=== PATIENT | female | born 1990 | race Caucasian/White ===

== ENCOUNTER 2021-04-06 12:38 | Observation (INO) | payer BC, SELFPAY ==
[2021-04-06 12:44] VITALS: BP 134/78; PULSE 71; RESP 16; TEMP 37.3; O2SAT 100
--- NOTE | 2021-04-06 13:09 | ED.GENADUL_ITS ---
Discharge Plan Disposition Patient Disposition: [facility] Condition: Stable Discharge Details Chief Complaint: AUTOMOTIVE SERVICE ASSISTANT Clinical Impression: Miscarriage, threatened, early Primary Care Provider: Brittney Alcala ED Provider: Gonzalez Ovalle Home Meds and New Rx's Prescriptions: No Action fluticasone propionate [Flonase Allergy Relief] 50 mcg/actuation spray,suspension 1 spray intranasal Q12H RF: 0 Formula 1 EACH tablet 1 ea PO DAILY Qty: 100 RF: 0 Medical Decision Making 30-year-old female at approximately 7 to 8 weeks gestation by last menstrual period. Reports onset yesterday of lower abdominal cramps consistent with previous menstrual cramps and vaginal flow of clots and blood up to 1-2 pads per hour. No vomiting, no recent illness, she is fully immunized against COVID-19. She recently had debris initiated care with obstetrics. She reports that she did have previous miscarriage and has single healthy child at home. Patient's vital signs are reassuring. Screening laboratories obtained and transvaginal ultrasound ordered but no windows server support technician available to perform the study today, Wednesday. Labs reveal unremarkable CBC and chemistries. Beta hCG is 5706. Patient Rh+. Case discussed case discussed with Dr. Moy. She is to consent the patient for D&C and patient to go to the OR. HPI General Mode of arrival: ambulatory . Date/Time Provider Initiated Documentation: 04/06/21 12:39 . Limitations to Documentation: no limitations . Information obtained by: patient . History of Present Illness 30 year old F presents to the emergency department with the chief complaint of Vaginal bleeding, first trimester , described as mild and moderate, and is localized to the abdomen and pelvis. and it has been intermittent. No relieving factors improve symptom(s), No exacerbating factors reported . Patient notes denies fever/chills and nausea/vomiting. Patient did receive the following treatments prior to arrival, none Related Data Home Medications Medication Instructions Recorded Confirmed prenat.vits,jake,goi-ogou-hkstw 1 ea PO DAILY #100 tab 09/14/14 04/06/21 [ Vitamins] fluticasone propionate 50 1 spray INTRANASAL Q12H 03/31/21 04/06/21 mcg/actuation nasal spray,suspension Allergies Allergy/AdvReac Type Severity Reaction Status Date / Time No Known Allergies Allergy Unverified 04/06/21 12:50 General Stated Complaint: AUTOMOTIVE SERVICE ASSISTANT EMILY: 2 Review of Systems Narrative: No vomiting. No fall or abdominal injury. Fully immunized against COVID-19. Using approximately 1-2 pads per hour. [facility] Family History Father Throat cancer Thyroid disorder Paternal Grandmother No problems noted. Social History Smoking/Tobacco Use Status: Never Smoking risk assessment performed?: Yes Alcohol Intake: never Drug use: Never Substance use type: does not use Exam Narrative Exam Narrative: GEN: awake, alert, oriented 3. Pleasant, well groomed, interactive. HEAD: Normocephalic, atraumatic ENT: Mucous membranes moist, oropharynx unremarkable, External ear exam unremarkable EYES: PERRL, EOMI NECK: Full ROM, no JAHAIRA, no menigismus CHEST/RESP: Nontender, clear to auscultation bilateral, no wheeze/rhonchi/rales CARDIOVASCULAR: RRR, no murmur, rub brenda. 2+ Rad pulse bilateral ABDOMEN: Soft, nontender, no mass. +Bowel sounds Vaginal exam unremarkable exterior/labia majora. On speculum exam the os is fingertip with dark blood in the dependent vaginal vault. EXT: Full ROM, no edema, no rash Neuro: Grossly normal neurologic exam, conversant, interactive. Psych: Speech fluent, thoughts congruent, affect normal Course Vital Signs Vital signs: Vital Signs Temperature 37.3 C 04/06/21 12:44 Pulse 71 04/06/21 12:44 Respiratory Rate 16 04/06/21 12:44 Blood Pressure 134/78 04/06/21 12:44 Pulse Oximetry 100 04/06/21 12:44 Temperature 37.3 C 04/06/21 12:44 Temperature Source Skin 04/06/21 12:44 Pulse 71 04/06/21 12:44 Respiratory Rate 16 04/06/21 12:44 Respiratory Effort Non-Labored 04/06/21 12:44 Blood Pressure 134/78 04/06/21 12:44 Blood Pressure Position Sitting 04/06/21 12:44 Pulse Oximetry 100 04/06/21 12:44 Oxygen Delivery Method Room Air 04/06/21 12:44 Oxygen Flow Rate 0 04/06/21 12:44 Pain Level 2 04/06/21 12:51
[2021-04-06 13:29] LABS: HCT 39.9 % (36.0-46.0); HGB 12.8 g/dL (11.2-15.7); MCH 27.6 pg (27.0-33.0); MCHC 32.1 % (32.0-36.0); MPV 9.9 fL (8.0-11.0); Platelet Count 359 10^3/uL (130-400); RBC 4.64 10^6/uL (3.93-5.22); RDW-SD 40.6 fL; WBC 10.59 10^3/uL (4.4-10.8)
[2021-04-06 14:04] LABS: Anion Gap 10.3 mmol/L (3-11); BUN 12 mg/dL (7-18); CO2 26.7 mmol/L (21.0-32.0); CREATININE 0.8 mg/dL (0.55-1.02); Calcium 9.2 mg/dL (8.5-10.1); Chloride 103 mmol/L (98-107); Glucose 88 mg/dL (74-106); HCG Quant, Pregnancy 5706 mIU/mL (1-3); Potassium 3.9 mmol/L (3.5-5.1); Sodium 140 mmol/L (136-145)
[2021-04-06] MEDS: DOXYCYCLINE 100 MG in Normal Saline 100 ML IVPB (15:45)
[2021-04-06 15:51] LABS: Source Nasal/Nares
--- NOTE | 2021-04-06 15:56 | HPE_ITS ---
Date of service: 04/06/21 Time of Service: 15:56 Assessment and Plan Assessment and plan (1) Incomplete : Status: Acute Assessment and plan: Informed consent was obtained. Patient was counseled regarding the risk of puncture of uterus with subsequent bleeding and need for possible laparotomy;the risk of infection and injury to surrounding structures including bowel, bladder, and blood vessels. Her questions were answered. She will receive 100mg Doxycycline IV prior to the procedure. History of Present Illness History of Present Illness Chief Complaint: incomplete 1st trimester SAB Narrative: Pt is a 30yo female with bleeding and pelvic cramping x 36hrs. Bleeding like a menses with passage of clots. + UPT confirmed 03/31/21 in [facility]. On presentation to ED nl CBC, hCG 5706 mIU/ml. Stable VS. Unremarkable abd and bimanual exam. Pt had Nexplanon removed 12/18/20. Her LNMP started 12/24/20. She had 3 days of lite bleeding start 02/14/21. Did not feel until mid Feb. Stopped feeling 3 days ago. Review of Systems Constitutional Constitutional: Reports system reviewed and no additional complaints, except as documented Genitourinary Genitourinary: Reports amenorrhea (+ UPT 03/31/21. Began menses like bleeding 72hrs ago.) and Reports pelvic pain Musculoskeletal Musculoskeletal: Reports system reviewed and no additional complaints, except as documented Integumentary/Breasts Skin/Breast: Reports breast pain (initial indicator that she was ) Psychiatric Psychiatric: Reports as per HPI (sad about loss of .) PFSH Family History Father Throat cancer Thyroid disorder Paternal Grandmother No problems noted. Social History (Updated 04/06/21 @ 16:05 by Cleopatra Moy MD) Smoking/Tobacco Use Status: Never Smoking risk assessment performed?: Yes Alcohol Intake: never Drug use: Never Substance use type: does not use Household members: spouse, children and other Details: [place] Housing: house Number of Children: 1 Education Level: college current occupation: mental and behavioral health specialist [facility] [employer] [facility] Meds Allergies and Home Medications Allergies Allergy/AdvReac Type Severity Reaction Status Date / Time No Known Allergies Allergy Unverified 04/06/21 12:50 Home Medications Medication Instructions Recorded Confirmed Type prenat.vits,jake,vij-ilbk-rfuba 1 ea PO DAILY #100 tab 09/14/14 04/06/21 History [ Vitamins] fluticasone propionate 50 1 spray INTRANASAL Q12H 03/31/21 04/06/21 History mcg/actuation nasal spray,suspension Exam Const General: no acute distress Nutritional Appearance: obese Orientation: alert, awake and oriented x3 Resp Effort & Inspection: normal respiratory effort Auscultation: clear to auscultation bilaterally Cardio Rate: regular rate Rhythm: regular rhythm GI Inspection: normal to inspection Palpation: soft, no hepatosplenomegaly, no masses and nontender General: deferred (had previously been performed by ED provider) Skin General skin exam: no rashes or lesions noted Extrem General: normal to inspection Psych Appearance: grossly normal Mental Status: mental status grossly normal Speech and Movement: speech and movement normal Mood: congruent mood Affect: sad Attitude: cooperative Thought Process: normal Thought Content: normal Insight: insight good Judgment: judgment good Results Labs Result diagrams: 04/06/21 13:19 04/06/21 13:19 Labs: Laboratory Results - last 24 hr 04/06/21 04/06/21 04/06/21 13:19 13:19 13:19 WBC 10.59 RBC 4.64 Hgb 12.8 Hct 39.9 MCV 86.0 MCH 27.6 MCHC 32.1 RDW 13.0 Plt Count 359 MPV 9.9 Sodium 140 Potassium 3.9 Chloride 103 Carbon Dioxide 26.7 Anion Gap 10.3 BUN 12 Creatinine 0.8 Estimated GFR/1.73 m2 >= 60.00 Glucose 88 Calcium 9.2 Beta HCG, Quant 5706 H COVID-19 Source Patient ABO/Rh A Positive Antibody Screen NEGATIVE 04/06/21 15:46 WBC RBC Hgb Hct MCV MCH MCHC RDW Plt Count MPV Sodium Potassium Chloride Carbon Dioxide Anion Gap BUN Creatinine Estimated GFR/1.73 m2 Glucose Calcium Beta HCG, Quant COVID-19 Source Nasal/Nares Patient ABO/Rh Antibody Screen Last Vital Signs Temp 99.1 F 04/06/21 12:44 Pulse 71 04/06/21 12:44 Resp 16 04/06/21 12:44 BP 134/78 04/06/21 12:44 Pulse Ox 100 04/06/21 12:44
--- NOTE | 2021-04-06 16:17 | W.ANESPRE ---
General Info Date of Service Date Performed: 04/06/21 Height: 5 ft 7 in Weight: 113.398 kg Body Mass Index (BMI): 39.1 Surgical Procedure: Operation Date: 04/06/21 16:15 Proposed Procedures Side Surgeon p Dilation & Curettage Cleopatra Moy MD Meds Allergies and Home Medications Allergies Allergy/AdvReac Type Severity Reaction Status Date / Time No Known Allergies Allergy Unverified 04/06/21 12:50 Home Medication Medication Instructions Recorded prenat.vits,jake,ojc-ahar-hneyy 1 ea PO DAILY #100 tab 09/14/14 [ Vitamins] fluticasone propionate 50 1 spray INTRANASAL Q12H 03/31/21 mcg/actuation nasal spray,suspension Current Visit Medications: Current Medications Generic Name Dose Route Start Last Admin Trade Name Freq PRN Reason Stop Dose Admin Doxycycline Hyclate 100 mg/ 100 mls @ 100 mls/hr 04/06/21 15:32 04/06/21 15:45 Sodium Chloride IVPB 04/06/21 16:31 100 mls/hr NOW ONE Administration IV Miscellaneous Supplies 1 each 04/06/21 13:00 Iv Access IV DIRECTED MICHAEL Sodium Chloride 0 ml 04/06/21 12:51 Normal Saline Flush 10 Ml Syr IVP PRN PRN PFSH Active Problems Active Problems: Problem Status Onset Code Incomplete O03.4 Miscarriage, threatened, early O20.0 Positive test Z32.01 Tobacco Smoking/Tobacco Use Status: Never Alcohol Alcohol Intake: never Substance Use Substance use: Never Substance use type: does not use Vital Signs and Lab Results Vital Signs Most Recent Vital Signs in EMR: Most Recent Vital Signs Temp Pulse Resp BP Pulse Ox 37.3 C 71 16 134/78 100 04/06/21 12:44 04/06/21 12:44 04/06/21 12:44 04/06/21 12:44 04/06/21 12:44 Lab Results Result Diagrams: 04/06/21 13:19 04/06/21 13:19 Blood Type / Crossmatch: Patient ABO/Rh A Positive 04/06/21 13:19 04/06/21 Antibody Screen NEGATIVE 04/06/21 13:19 04/06/21 Complete Blood Count: White Blood Count 10.59 10^3/uL (4.4-10.8) 04/06/21 13:19 04/06/21 Red Blood Count 4.64 10^6/uL (3.93-5.22) 04/06/21 13:19 04/06/21 Hemoglobin 12.8 g/dL (11.2-15.7) 04/06/21 13:19 04/06/21 Hematocrit 39.9 % (36.0-46.0) 04/06/21 13:19 04/06/21 Platelet Count 359 10^3/uL (130-400) 04/06/21 13:19 04/06/21 Complete Metabolic Panel: Sodium Level 140 mmol/L (136-145) 04/06/21 13:19 04/06/21 Potassium Level 3.9 mmol/L (3.5-5.1) 04/06/21 13:19 04/06/21 Chloride Level 103 mmol/L (98-107) 04/06/21 13:19 04/06/21 Carbon Dioxide Level 26.7 mmol/L (21.0-32.0) 04/06/21 13:19 04/06/21 Blood Urea Nitrogen 12 mg/dL (7-18) 04/06/21 13:19 04/06/21 Creatinine 0.8 mg/dL (0.55-1.02) 04/06/21 13:19 04/06/21 Estimated GFR/1.73 m2 >= 60.00 (mL/min/1.73m2) 04/06/21 13:19 04/06/21 Calcium Level 9.2 mg/dL (8.5-10.1) 04/06/21 13:19 04/06/21 Glucose Level 88 mg/dL (74-106) 04/06/21 13:19 04/06/21 Liver Function Panel: No Data to Display Coagulation Panel: No Data to Display Cardiac Panel: No Data to Display Arterial Blood Gas: No Data to Display Venous Blood Gas: No Data to Display Pancreas Panel: No Data to Display Thyroid Panel: No Data to Display Infectious Disease: Coronavirus (COVID-19)(PCR) Pending 04/06/21 15:46 04/06/21 Coronavirus 2019 Source Nasal/Nares 04/06/21 15:46 04/06/21 Blood Cultures: No Data to Display Toxicology Panel: No Data to Display Panel: Urine HCG, Qualitative Positive 03/31/21 08:49 03/31/21 Beta HCG, Quantitative 5706 mIU/mL (1-3) H 04/06/21 13:19 04/06/21 Anesthesia Assessment and Plan Anesthesia History Personal History: No History of Anesthesia Complications Family History: No Family History of Anesthesia Complications Exercise Tolerance Exercise Tolerance: Metabolic Equivalents>4 Pertinent Negatives Pertinent Negatives: No Symptoms of GERD, No Major Cardiovascular Symptoms or Complaints, No Major Pulmonary Symptoms or Complaints (Nasal spray for allergies) and No History of CVA/TIA Cardiac & Pulmonary Exam Cardiac Exam: Normal S1/S2 Heart Sounds Pulmonary Exam: Clear Bilateral Breath Sounds Airway Exam Known Difficult Airway: No Mallampati Class: 2 Mouth Opening: Normal (> 3cm) Thyromental Distance: Greater than 3 cm Neck Range of Motion: Full ROM Neck Circumference: Normal Teeth Condition: Normal Dentition ASA Classification ASA Score: ASA 3 Emergency Case?: No NPO Status NPO Status: NPO Clears >2 hours, Solids >8 hours Status Status: Not Per Patient (Incomplete ) Anesthesia Plan Resuscitation Status: Full Code Anesthesia Technique: General Anesthesia Airway Planned: Natural Airway Monitors Used: Standard Monitors
--- NOTE | 2021-04-06 16:47 | W.PM.DSUDISC ---
Discharge Plan Disposition Condition: Stable Discharge Details Admit Date/Time: 04/06/21 17:40 Admit Provider: Cleopatra Moy Attending Provider: Cleopatra Moy Primary Care Provider: Brittney Alcala Home Meds and New Rx's Prescriptions: No Action fluticasone propionate [Flonase Allergy Relief] 50 mcg/actuation spray,suspension 1 spray intranasal Q12H RF: 0 Formula 1 EACH tablet 1 ea PO DAILY Qty: 100 RF: 0 Discharge Instructions Additional Instructions: Rest tonight and tomorrow. you may return to work on 04/08/2021. You may expect vaginal bleeding like a mild period the next 3 days. [facility] at [phone] on 04/07/2021 to schedule a 2-week postop appointment with Dr. Moy. You may take afro-gse-rvecpsf ibuprofen 600 mg every 6 hours for pain. Acetaminophen 325 mg every 4 hours for pain. Stand Alone Forms: DSU Post Gynecology Surgery Activity:: Activity as Tolerated Shower/Bathe:: 24 hours Diet:: As Tolerated DS: Diagnosis Discharge Diagnosis (1) Incomplete : Status: Acute (2) Hx of dilation and curettage: Status: Acute
[2021-04-06 16:56] VITALS: BMI 39.1
[2021-04-06 16:56] LABS: COVID-19 PCR Negative (Negative)
[2021-04-06] MEDS: Lactated Ringers 1,000 ML 125 ML IV (17:05)
[2021-04-06] MEDS: Bupivacaine 0.25% Pres-Free 30 ML VIAL (17:21)
[2021-04-06] MEDS: Silver Nitrate Stick 1 EACH (17:30)
--- NOTE | 2021-04-06 17:30 | POC_PTH ---
PATIENT: Joseluis Lainez LOC: OBS U#:[id number] AGE/SX: 30/F ROOM: OBS.307 RE04/06/[address]: Cleopatra Moy : 1990 BED: A DIS: 04/07/2021 SPEC #: [id number] RECD: 04/07/21 10:25 STATUS: ISAIAS REQ #: [id number] AMANDA: 04/06/21 17:[address]: Cleopatra Moy DEPT: Surgical Specimen RECD BY: Pat Cheek ENTERED: 04/07/21 10:27 SP TYPE: POC OTHR DR: Brittney Alcala Tissues: 1 - INDUCED Procedures: GROSS AND MICRO LEVEL 4 Comments: [id number]
--- NOTE | 2021-04-06 17:43 | W.PM.DSUDISC ---
Discharge Plan Disposition Patient Disposition: HOME Condition: Stable Discharge Details Attending Provider: Cleopatra Moy Primary Care Provider: Brittney Alcala Home Meds and New Rx's Prescriptions: No Action fluticasone propionate [Flonase Allergy Relief] 50 mcg/actuation spray,suspension 1 spray intranasal Q12H RF: 0 Formula 1 EACH tablet 1 ea PO DAILY Qty: 100 RF: 0 Discharge Instructions Additional Instructions: Rest tonight and tomorrow. He may return to work on 04/08/2021. You may expect vaginal bleeding like a mild period the next 3 days. [facility] at [phone] on 04/07/2021 to schedule a 2-week postop appointment with Dr. Moy. You may take irjf-rqw-tvnfdyh ibuprofen 600 mg every 6 hours for pain. Acetaminophen 325 mg every 4 hours for pain. Stand Alone Forms: DSU Post Gynecology Surgery Activity:: Activity as Tolerated Shower/Bathe:: 24 hours Diet:: As Tolerated Discharge Orders Discharge Orders: Discharge Order (Routine); Ordered 04/06/21 Ordered By: Cleopatra Moy DS: Diagnosis Discharge Diagnosis (1) Incomplete : Status: Acute (2) Hx of dilation and curettage: Status: Acute
--- NOTE | 2021-04-06 17:47 | W.PM.OP ---
Date of service: 04/06/21 Time of Service: 17:47 Operative Note Operative Note DATE OF PROCEDURE: 04/06/21 PRE-OP DIAGNOSIS: Incomplete SAB at 7 W-2 D EGA POST-OP DIAGNOSIS: same PROCEDURE: Cervical dilation and suction evacuation of uterine contents SURGEON: Cleopatra Moy ANESTHESIA TYPE: General:No Airway Refer to Anesthesia Record ESTIMATED BLOOD LOSS: 5 PATHOLOGY: other (Products of conception to pathology) COMPLICATIONS: None Patient was transported to: floor Patient's condition: stable Indications: 30-year-old G3, P1 female approximately 7W 2D EGA 72 hours of bleeding and light cramping. Preliminary ultrasound evaluation in the emergency room showed no evidence of an IUP. No evidence of adnexal masses. In the ER her hCG was 5706mIU/ml. Patient was counseled regarding the options for expectant management or D&C. She chose a D&C Findings: Uterus approximately 8 weeks size cervix was dilated to fingertip. Moderate products of conception retrieved. Procedure Description: Patient was taken to the operating room where she was placed in the dorsal supine position and general anesthesia was administered without difficulty. IV Doxycycline had been administered in the emergency department prior to transport to the OR. She was then placed in the dorsal lithotomy position in [facility] stirrups in a neurologically neutral position. She was then prepped, and draped in the usual sterile fashion. Surgical timeout was performed. Dalton speculum was placed in the vagina and the anterior lip of the cervix was infiltrated with 2 cc of 0.25% Marcaine without epinephrine. A single-tooth tenaculum was then used to grasp and hold the anterior lip of the cervix. A paracervical block was performed with 4 cc of quarter percent Marcaine injected into the 4 and 8:00 paracervical spaces respectively. The cervix was then sequentially dilated to a maximum of 17 [place] and a 8 mm curved suction cannula was attached to suction and the level of suction tested. The cannula was inserted into the uterine cavity attached to suction and sequentially all 4 quadrants of the uterine cavity were suction curetted until minimal tissue returned. The suction cannula was then removed a banjo curette was used to perform a gentle curetting of all 4 quadrants of the uterine cavity. Minimal tissue was returned. A final insertion of the suction cannula and suction curetting of all 4 quadrants was performed with minimal tissue returned. All instruments were removed from the vagina tenaculum site was noted to be bleeding. The anterior lip of the cervix was treated with application of silver nitrate and the tenaculum site was noted be hemostatic at completion of the procedure Patient was awakened and transported to recovery area in stable condition. All sponge lap needle counts correct x2
--- NOTE | 2021-04-06 17:50 | W.ANESPOSTOP ---
Postoperative Evaluation Date, Time and Location Date Performed: 04/06/21 Time Performed: 17:44 Patient Location: Obstetrics Vital Signs Most Recent Imported Vital Signs: Most Recent Vital Signs Temp Pulse Resp BP Pulse Ox 37.3 C 71 16 134/78 100 04/06/21 12:44 04/06/21 12:44 04/06/21 12:44 04/06/21 12:44 04/06/21 12:44 Most Recent Manually Entered Vital Signs: Adult Blood Pressure: 125/73 Heart Rate: 87 Respirations: 20 Oxygen Saturation (%): 98 Temperature (C): 36 C Pain Score (0-10 Scale): 0 Pain Score Most Recent Pain Score: Most Recent Pain Score Pain Level 2 04/06/21 12:51 Assessment Mental Status: Awake (Alert & Oriented to Patient Baseline) Airway and Respiratory Function: Patent airway with normal (patient baseline) respiratory exam Cardiovascular Function: Hemodynamically Stable Hydration Status: Adequately Hydrated Nausea & Vomiting: No Nausea or Vomiting Pain: Pt. Denies Any Pain Peripheral Nerve Block: Patient did not receive a nerve block
[2021-04-06 17:51] VITALS: BP 125/73; PULSE 87; RESP 20; TEMPC 36; O2SAT 98
[2021-04-06 17:58] VITALS: BP 123/80; PULSE 85; RESP 16; O2SAT 100
[2021-04-06 18:18] VITALS: BP 128/75; PULSE 87; RESP 16; O2SAT 99
[2021-04-06 18:39] VITALS: BP 122/82; PULSE 78; RESP 16; O2SAT 100
[2021-04-06 19:03] VITALS: BP 116/77; PULSE 87; RESP 16; TEMP 36.7; O2SAT 100
== END 2021-04-07 16:51 | disposition home or self-care (01) ==
LOC: ER 15:30 → SUR 16:52 → OBS 04-09 14:42
PROVIDERS: Admitting Provider Obstetrics & Gynecology Gynecology; Emergency Provider Emergency Medicine; PCP Family Medicine; Visit Provider Obstetrics & Gynecology Gynecology
PROC: (CPT 59812; principal; 2021-04-06 16:15)
DX: O03.4 Incomplete spontaneous abortion without complication (principal); Z3A.01 Less than 8 weeks gestation of pregnancy
CPT/HCPCS: 59812; 36415; 80048; 85027; 86850; 86900; 86901; 87635; 88305; 96365; 99285; 84702; 88304; 99284; G0378; J1100; J1885; J2001; J2405; J2704

== ENCOUNTER 2021-10-08 02:57 | Outpatient (CLI) | payer BC, SELFPAY | END 2021-10-08 02:58 | disposition home or self-care (01) | LOC: LBO 02:57 | PROVIDERS: PCP Family Medicine; Visit Provider Advanced Practice Midwife ==

== ENCOUNTER 2021-10-08 12:45 | Outpatient (REF) | payer BC, SELFPAY ==
[2021-10-08 15:14] LABS: *AMPHETAMINES SCREEN URINE Negative (Negative); *BARBITURATES SCREEN URINE Negative (Negative); *BENZODIAZEPINES SCREEN URINE Negative (Negative); Cannabinoids THC Negative (Negative); Cocaine Screen,Urine Negative (Negative); METHADONE URINE SCREEN Negative (Negative); OPIATES URINE SCREEN Negative (Negative)
[2021-10-08 15:22] LABS: Tricyclic Antidepressants Negative (Negative)
[2021-10-10 14:16] LABS: Chlamydia Result Negative (Negative); GC Result Negative (Negative)
[2021-10-14 12:52] LABS: Buprenorphine Negative ng/mL (Cutoff: 5.0); Norbuprenorphine Negative ng/mL (Cutoff: 2.5)
== END 2021-10-08 12:46 | disposition home or self-care (01) ==
LOC: LBN 12:45
PROVIDERS: PCP Family Medicine; Visit Provider Advanced Practice Midwife
DX: Z34.91 Encounter for supervision of normal pregnancy, unspecified, first trimester (principal); Z3A.09 9 weeks gestation of pregnancy
CPT/HCPCS: 80307; 87491; 87591; 87086

== ENCOUNTER 2021-10-15 04:59 | Outpatient (CLI) | payer BC, SELFPAY ==
[2021-10-15 08:46] LABS: Kit/Specimen SENT
[2021-10-15 08:53] LABS: Abs Immature Grans 0.03 10^3/uL (0.0-0.06); Absolute Basophil Count 0.03 10^3/uL (0.0-0.2); Absolute Eosinophil Count 0.05 10^3/uL (0.0-0.7); Absolute Lymphocyte Count 1.78 10^3/uL (1.2-3.4); Absolute Monocyte Count 0.54 10^3/uL (0.1-0.8); Basophils % 0.3; Eosinophils % 0.5; HCT 37.3 % (36.0-46.0); HGB 12.2 g/dL (11.2-15.7); Immature Grans % 0.3; Lymphocytes % 19.5; MCH 27.7 pg (27.0-33.0); MCHC 32.7 % (32.0-36.0); MCV 84.8 fL (80-95); MPV 10.5 fL (8.0-11.0); Monocytes % 5.9; Neutrophils % 73.5; Platelet Count 330 10^3/uL (130-400); RDW 13.4 % (11.7-14.6); WBC 9.13 10^3/uL (4.4-10.8)
[2021-10-15 08:58] LABS: Glucose,1 Hr (Glucola) 69 mg/dL (80-140)
[2021-10-16 09:52] LABS: Hepatitis B Surface Ag Negative (Negative)
[2021-10-16 10:16] LABS: HIV-1/2 Ag & Ab Screen Negative (Negative)
[2021-10-16 10:31] LABS: Hepatitis C Ab w Rflx HCV PCR Negative (Negative)
[2021-10-16 11:01] LABS: Varicella IgG Antibody Positive (See Note)
[2021-10-16 11:04] LABS: Rubella IgG Ab (UVM) Negative (See Note)
[2021-10-17 13:40] LABS: Syphilis IgG w/Reflex Nonreactive (Nonreactive)
[2021-10-18 02:26] LABS: Specimen WB Whole Blood
== END 2021-10-15 05:00 | disposition home or self-care (01) ==
PROVIDERS: Advanced Practice Midwife; PCP Family Medicine; Visit Provider Advanced Practice Midwife
DX: Z34.91 Encounter for supervision of normal pregnancy, unspecified, first trimester (principal); Z3A.10 10 weeks gestation of pregnancy
CPT/HCPCS: 36415; 81329; 82950; 86787; 86803; 86850; 86900; 86901; 87340; 87389; 85025; 86762; 86780

== ENCOUNTER 2021-11-07 02:16 | Outpatient (CLI) | payer BC, SELFPAY ==
[2021-11-07 14:23] LABS: Kit/Specimen SENT
== END 2021-11-07 02:17 | disposition home or self-care (01) ==
PROVIDERS: Advanced Practice Midwife; PCP Family Medicine; Visit Provider Advanced Practice Midwife
DX: Z34.82 Encounter for supervision of other normal pregnancy, second trimester (principal); Z36.89 Encounter for other specified antenatal screening
CPT/HCPCS: 36415

== ENCOUNTER → 2021-12-01 02:06 | Outpatient (CLI) | payer BC, SELFPAY ==
--- NOTE | 2021-12-01 06:56 | DI.US_ITS ---
Exam(s) US OB 2-3 TRIMESTER W MOD EXAM: US OB 2-3 TRIMESTER W MOD CLINICAL HISTORY: ,z34.90. TECHNIQUE: Transabdominal obstetrical ultrasound performed. COMPARISON: No exams were available for comparison FINDINGS: Number of fetuses: One. position: Variable Placental grade: 0 Placental location: Anterior. No evidence of previa. BIOMETRIC DATA: BPD: 42 mm = 18+ 4 weeks HC: 156mm = 18+ 4 weeks AC: 134mm = 18+ 6 weeks FL: 26mm = 18 weeks Cisterna Magna: 2.4 mm Cerebellum: 1.8 cm EFW: 241 grms 96% Composite Age: 18+ 4 weeks EDC by US: 30 April 2022 Heart Rate: 145BPM Amniotic fluid : Amount of fluid is visually within normal limits. ANATOMICAL SURVEY: Four-chambered heart: Not well seen LVOT: Not well seen RVOT: Not well seen Left-sided stomach: Unremarkable. urinary bladder: Unremarkable. Bilateral kidneys: Unremarkable. Three-vessel cord: Not well seen Cord insertion: Unremarkable. Umbilical artery velocity: Unremarkable. Posterior fossa:Unremarkable. ventricles: Unremarkable. nose: Not well seen lips: Not well seen palate: Not well seen spine: Unremarkable. Two arms and two legs: Unremarkable. IMPRESSION: 1. Single live intrauterine gestation with composite age of 18+ 4 weeks. 2. face and heart were not well visualized. The patient is scheduled to return 15 December 2021 fo r additional imaging.. DATA REPOSITORY:
== END ==
PROVIDERS: PCP Family Medicine; Visit Provider Advanced Practice Midwife
DX: Z34.92 Encounter for supervision of normal pregnancy, unspecified, second trimester (principal); Z3A.18 18 weeks gestation of pregnancy
CPT/HCPCS: 76805

== ENCOUNTER 2022-02-17 03:02 | Outpatient (CLI) | payer BC, SELFPAY ==
[2022-02-17 10:18] LABS: HCT 36.6 % (36.0-46.0); MCHC 32.8 % (32.0-36.0); MCV 86 fL (80-95); MPV 10.3 fL (8.0-11.0); Platelet Count 331 10^3/uL (130-400); RBC 4.28 10^6/uL (3.93-5.22); RDW 13.5 % (11.7-14.6); RDW-SD 42.3 fL; WBC 14.95 10^3/uL (4.4-10.8)
[2022-02-17 10:27] LABS: Glucose,1 Hr (Glucola) 127 mg/dL (80-140)
== END 2022-02-17 03:03 | disposition home or self-care (01) ==
LOC: LBO 03:04
PROVIDERS: Advanced Practice Midwife; PCP Family Medicine; Visit Provider Advanced Practice Midwife
DX: Z34.93 Encounter for supervision of normal pregnancy, unspecified, third trimester (principal)
CPT/HCPCS: 36415; 82950; 85027

== ENCOUNTER 2022-04-13 14:14 | Outpatient (REF) | payer MEDICAID, SELFPAY ==
[2022-04-13 16:02] LABS: *AMPHETAMINES SCREEN URINE Negative (Negative); *BARBITURATES SCREEN URINE Negative (Negative); *BENZODIAZEPINES SCREEN URINE Negative (Negative); Cannabinoids THC Negative (Negative); Cocaine Screen,Urine Negative (Negative); METHADONE URINE SCREEN Negative (Negative); OPIATES URINE SCREEN Negative (Negative)
[2022-04-13 16:09] LABS: Tricyclic Antidepressants Negative (Negative)
[2022-04-17 12:04] LABS: Buprenorphine Negative ng/mL (Cutoff: 5.0); Norbuprenorphine Negative ng/mL (Cutoff: 2.5)
== END 2022-04-13 14:15 | disposition home or self-care (01) ==
LOC: LBN 14:14
PROVIDERS: PCP Family Medicine; Visit Provider Advanced Practice Midwife
DX: Z34.93 Encounter for supervision of normal pregnancy, unspecified, third trimester (principal); Z36.85 Encounter for antenatal screening for Streptococcus B; Z3A.36 36 weeks gestation of pregnancy
CPT/HCPCS: 80307; 80348; 87081

== ENCOUNTER 2022-05-03 03:58 | Inpatient (IN) | payer MEDICAID, SELFPAY ==
[2022-05-03] VITALS (16 sets, daily range): BP systolic 112–140; BP diastolic 67–89; PULSE 76–153; RESP 16–18; TEMP 35.9–37.2; O2SAT 96–98
--- NOTE | 2022-05-03 05:03 | HPE_ITS ---
Date of service: 05/03/22 Time of Service: 05:03 Assessment and Plan Assessment and plan (1) Uterine contractions: Status: Acute Assessment and plan: A: 31 yo @ 39 wks Prodromal/early labor vs active labor GBS neg; category 1 tracing Planning unmedicated Low risk for SD & PPH P: Will observe for cervical change PO hydration, ambulation, rest prn Reassess in 3-4 hours OB-HPI Labor/Delivery History of Present Illness Reason for Visit: Labor at 39 wks Chief Complaint: Uterine Contractions (Went to bed having mild irregular pains, woke up at 0230 with stronger more regular contractions coming every 4 minutes. No vomiting, ROM or bleeding. Plans hypnobirthing technique and desires to use tub.). ALEX Calculator Estimated Delivery Date Method Current WG Current Estimate 05/08/22 Ultrasound #1 39w 2d Other Estimates 04/10/22 LMP (Certain) 43w 2d History of Present Expected Delivery Route/Plan - CNM FOB/ - Praveen Lainez (2nd child together). BB yes to circ / GBS neg Rubella non immune, offer MMR PP Desires to use the tub for labor/maybe , nitrous Specific Issues/Plan 1. BMI 39- early GTT=69, 28 week GTT 127 2. History of anxiety, depression, PTSD 3. Desires panorama and SMA, previous neg CF results; SMA is neg 3a. cfDNA insufficient sample @ 10 wks, will redraw @ 12 wks 3b. cfDNA results = low prob x5, male fetus 4. Family hx -genetic aging disorder- FOB's niece's son, Cole syndrome- [place]'s 2nd cousin. - offered genetic counseling, pt declines 5. Rubella non immune offer MMR PP 6. last pap (scanned records) 05/27/2018 [place] 7. History of SOB 2019, hospitalized x 5 days. Maternal mild tricuspid regurgitation on echo (scanned)-03/2019, no antibiotic prophylaxis recommended - breathing treated with nebulizer. 8. Limited facial views- repeat US scheduled; completed anatomy 12/16 99% growth 9. Depression, requested Counseling, [facility] referral and meeting with 01/06 9a. vimals Millie Pinzon in [place] Assessment: History Reviewed & Current Review of Systems Narrative: ROS completed and found to be noncontributory PFSH All Active Problems (Updated 04/24/21 @ 15:32 by Cleopatra Moy MD) Uterine contractions (Acute) Depression (Chronic) Rubella non-immune status, antepartum (Acute) BMI 39.0-39.9,adult (Acute) (Acute) Hx of dilation and curettage (Acute) 04/06/21. 7w2/7d Medical History (Updated 05/03/22 @ 05:10 by Milagros Hernandez) Incomplete 04/06/21. 7+w EGA. Positive test Family History (Updated 10/08/21 @ 10:22 by Shantelle May CNM) Father Throat cancer Thyroid disorder Paternal Grandmother Dementia alzheimers Social History (Updated 09/17/21 @ 14:23 by Cleopatra Moy MD) Smoking/Tobacco Use Status: Never Smoking risk assessment performed?: Yes Alcohol Intake: never Drug use: Never Substance use type: does not use Household members: spouse, children and other Details: Juan JoséTab Noam Housing: house Number of Children: 1 Education Level: college current occupation: mental and behavioral health specialist [employer] History History 3 Para 1 Hx # Term Pregnancies 1 Multiple births 0 Hx # Pregnancies 0 Ectopic pregnancies 0 AB induced 0 Hx Number of Living Children 1 AB spontaneous 1 Past Pregnancies Del. Date GA/Weeks # Preg Succ Route Wgt Sex Labor Lgth Anesth esia Location Prov Complic Unknown vaginal 10/11/14 39 No vaginal 7 lb 6 oz Male regional Si rit Delivery Date: 10/11/14 Last Updated by: TIM Yan PROM, pitocin augmentation. Epidural. Meds Allergies and Home Medications Allergies Allergy/AdvReac Type Severity Reaction Status Date / Time No Known Allergies Allergy Verified 04/27/22 08:46 Home Medications Medication Instructions Recorded Confirmed Type prenat.vits,jake,amv-pobt-tpkpc 1 tab PO DAILY 09/11/21 04/27/22 History fish, borage, flaxseed oils-omega 1 cap PO DAILY 10/08/21 04/27/22 History 3,6,9 cb #1 400 mg-400 mg-400 mg cap (Triple [place] 3-6-9) bisacodyl 10 mg rectal suppository 10 mg AK DAILY PRN constipation 10/13/21 04/27/22 Rx (Dulcolax (bisacodyl)) #12 ea fluticasone propionate 50 1 spray intranasal Q12H PRN nasal 03/17/22 04/27/22 Rx mcg/actuation nasal congestion #16 grams spray,suspension (Flonase Allergy Relief) Exam Physical Exam Vital Signs Reviewed: Yes Constitutional Constitutional: mild distress, obese and cooperative Detailed Labor and Delivery Exam Dilation: 2 Effacement (%): 80 station: -3 Cervix position: mid Consistency: medium GUERRA Score(Cervical Ripeness Score): 7 Amniotic Membrane Status: Intact Contraction Frequency(min): 3-5 Contraction Duration(sec): 40-50 Contraction Intensity: Mild Fetus A Heart Rate Baseline: 140 Monitor Accelerations: 15 X 15 Monitor Decelerations: None Variability: Moderate (6-25 BPM) Categories: Category I HEENT Exam HEENT Exam: Normal Neck Exam Neck Exam: Normal Chest/Brest/Axilla Exam Chest Exam: Normal Breast Exam Breast Exam: Not Done Respiratory Exam Respiratory Exam: Normal Cardiovascular Exam Cardiovascular Exam: Normal Abdominal Exam Abdominal Exam: Normal (Gravid, nontender) Rectal Exam Rectal Exam: Not Done Exam Exam: Normal Extremities Exam Extremities Exam: Normal Back/Spine/Pelvis Exam Back Exam: Normal Pelvis Adequate: Yes (proven to 7'6) Skin Exam Skin Exam: Normal Neurological Exam Neurological Exam: Normal Psychiatric Exam Psychiatric Exam: Normal Results Results Group Beta Strep: Negative Blood Type: A+ Rubella Status: Nonimmune Varicella Immunity: Immune Risk Assessment Risk for Shoulder Dystocia Historical/Initial OB: POSITIVE FOR: Pre- BMI>30; NEGATIVE FOR: Pelvic Abnormality, Previous Shoulder Dystocia or Previous Macrosomia Increased Risk?: No Delivery Plan @ 36wks: spont labor, Risk for Pre-Eclampsia Yes, if one or more: NEGATIVE FOR: Hx Pre-E/Gest HTN, Chronic HTN, Multiple Gestation, Pre-gestational DM, Renal Disease, Systemic Lupus or APA Syndrome Yes, if 2 or more: POSITIVE FOR: BMI>30; NEGATIVE FOR: Nulliparity, Age>= 35 yrs, >10yr btwn pregnancies, ethinicty, Mother/Sister w/ Pre-E or Previous IUGR Risk for Post- Hemorrhage Initial: NEGATIVE FOR: Multiple Gestation, Previous PPH, Known Clotting Deficiency, Grand Multiparity or Anticoagulation At Risk?: No Counseled re: Active Management: Yes Risks Reviewed Risks Reviewed Upon Admission: Yes
--- NOTE | 2022-05-03 09:13 | W.PM.OBNL1 ---
Date of service: 05/03/22 Time of Service: 09:13 Pelvic Exam Dilation: 3 Effacement (%): 100 station: -3 Cervix Position: posterior Consistency: soft BISHOPS Score(Cervical Ripeness Score): 8 Contractions Contraction Frequency(min): q3-4 Contraction Duration(sec): 50-60 Intensity: Mild/Moderate Fetus A Amniotic Membrane Status: Intact Assessment and Plan Assessment and plan (1) Uterine contractions: Status: Acute Assessment and plan: A: Cervical change to 3/100% Low risk multip; EFW 3500 gms P: Admit to BC, CBC, T&S, COVID swab Expectant management Anticipate Offer MMR Objective Temp Pulse Resp BP 98.4 F 93 H 16 135/77 05/03/22 05:02 05/03/22 05:13 05/03/22 05:02 05/03/22 05:13 Vital Signs Reviewed: Yes Objective Narrative Objective Narrative: Ambulated around unit, breathing hard with contractions Cervical change palpable Intermittent auscultation after category 1 tracing Subjective Interval history since last seen: Contractions have increased in intensity, ate breakfast with appetite but then vomited the entirety. Is accompanied by FOB for support, happy to be in labor.
[2022-05-03 09:56] LABS: HCT 38.9 % (36.0-46.0); HGB 12.5 g/dL (11.2-15.7); MCH 26.8 pg (27.0-33.0); MCHC 32.1 % (32.0-36.0); MCV 83 fL (80-95); MPV 10.4 fL (8.0-11.0); Platelet Count 359 10^3/uL (130-400); RBC 4.67 10^6/uL (3.93-5.22); RDW 14.5 % (11.7-14.6); RDW-SD 43.9 fL; WBC 15.43 10^3/uL (4.4-10.8)
[2022-05-03 10:43] LABS: Source Nasal/Nares
[2022-05-03 12:31] LABS: COVID-19 PCR Negative (Negative)
[2022-05-03] MEDS: Oxytocin 10 UNITS/ML VIAL IM (13:03)
[2022-05-03] MEDS: miSOPROStol 200 MCG TAB 600 MCG SL (13:20)
--- NOTE | 2022-05-03 13:35 | OBVDS_ITS ---
Date of service: 05/03/22 Time of Service: 13:35 OB Labor/ Delivery Information Baby A Delivery Delivery Method: Spontaneaous Presentation: Vertex Breech Position: N/A Cord Description-Baby A: 3 Vessels Amniotic Fluid: Meconium Estimated Blood Loss: 350 ml Delivery Outcome: Liveborn Infant Transferred: Remains with Mother Note: Pt labored actively moving around the room, eventually requested vaginal exam and entrance to tub when she began to feel pelvic and rectal pressure. Intermittent auscultation of FHT's per doptone reassuring, cvx exam 8/100 vtx 0 station and BBOW. Pt entered tub, water temperature @ 98 degrees. Increasingly strong urges to bear down progressed, cvx exam in tub 8 cm with vtx @ +1, AROM with pt consent for lightly meconium stained fluid, FHT's remained at 140's baseline per doptone. shortly thereafter of a vigorous male infant over intact perienum, father's hand followed head through , CNM assisted with easily released shoulders, baby to mother's arms immediately. Pitocin 10 units given IM, cord ceased pulsating at 2 minutes, clamped and cut by FOB, Addy placenta then delivered intact with 3VC. Cord blood collected. Pt assisted to bed, small-moderate rubra noted upon leaving tub, perineal inspection revealed small first degree laceration oozing blood to approximated with 1 stitch of 3.0 Vicryl, fundal massage firm 2 below umbilicus, miso 600 mcg given PO as precaution. Baby placed S2S once pt settled in bed, strong family bonding observed, pt verbalizes satisfaction with experience. Apgars 8/9, weight 3655 gms. Providers Nurse Public Information Director: Milagros Hernandez Nurse: Isabel Gonsalves Nurse: Angy Jackson Labor/Delivery Information Number of Babies in Womb: 1 Steroids Given: None Reason Steroids Not Administered: N/A Group Beta Strep: Negative Antibiotics Administered: No Rubella Status: Nonimmune Blood Type: A+ Varicella Immunity: Immune Medication in Delivery: pitocin 10 units IM after delivery Shoulder Dystocia: No Stages of Labor Onset of Labor Date: 05/03/22 Onset of Labor Time: 01:00 Complete Dilatation Date: 05/03/22 Complete Dilatation Time: 12:55 Labor - Stage 1 Duration: 11 hours and 55 minutes ROM Baby A: 05/03/22 ROM Baby A: 12:49 ROM Total Time- Baby A: [id number] Infant Delivery Date-Baby A: 05/03/22 Infant Delivery Time-Baby A: 13:03 Labor Stage 2 Duration: 8 minutes Placenta Delivery Date-Baby A: 05/03/22 Placenta Delivery Time-Baby A: 13:08 Labor-Stage 3 Duration: 5 minutes Total Length of Labor-Baby A: 12 hours and 3 minutes Placenta Status: Delivered Baby A Infant Gender: Male Gestational Status: Term (39-41.6 wks) Gestational Age in Weeks/Days: 39 Weeks and 2 Days weight: 8 lb 0.926 oz Weight Comment: 3655 gms Score-1 Minute Interval(Baby A) Heart Rate-1 minute: 100 BPM or Greater Respiratory Effort- 1 minute: Spontaneous/Strong Cry Muscle Tone-1 minute: Active Movement Reflex Response-1 minute: Prompt Response Color-1 minute: Pallor or Cyanosis Total Score-1 minute: 8 Score-5 Minute Interval(Baby A) Heart Rate- 5 minute: 100 BPM or Greater Respiratory Effort-5 minute: Spontaneous/Strong Cry Muscle Tone-5 minute: Active Movement Reflex Response-5 minute: Prompt Response Color-5 minute: Bluish Hands or Feet Total Score- 5 minute: 9 Procedure Procedures: Cord Blood Collection
--- NOTE | 2022-05-03 13:52 | W.PM.OBPNV1 ---
Date of service: 05/04/22 Time of Service: 08:00 Assessment and Plan Assessment and plan (1) Term delivered: Status: Acute Exam Physical Exam Vital signs: Temp Pulse Resp BP 98.1 F 90 18 125/67 05/03/22 10:52 05/03/22 13:47 05/03/22 10:52 05/03/22 13:47 Results Hemoglobin/Hematocrit: Hgb 12.5 g/dL (11.2-15.7) 05/03/22 09:40 Hct 38.9 % (36.0-46.0) 05/03/22 09:40 Abnormal Lab Findings: Abnormal Labs 05/03/22 09:40 WBC 15.43 H MCH 26.8 L
--- NOTE | 2022-05-03 14:51 | W.PM.OBPNV1 ---
Date of service: 05/04/22 Time of Service: 08:00 Assessment and Plan Assessment and plan (1) Term delivered: Status: Acute Assessment and plan: A: Nml PPD #1 Satisfied with experience off to a good start P: Circumcision planned for today Pt requests discharge this afternoon Will offer MMR Prior to discharge Written instructions reviewed and given to pt Plans use of condoms and fertility awareness as BCM Subjective Subjective Patient comments: No complaints, Pain well controlled, Tolerating diet and Flatus present Patient's Mood: happy baby status: Doing well, Nursing well, Rooming in and Strong Bonding Observed [place] feeding status: Exclusively breast feeding Exam Physical Exam Vital signs: Temp Pulse Resp BP 98.1 F 90 18 140/84 05/03/22 10:52 05/03/22 14:47 05/03/22 10:52 05/03/22 14:47 Vital Signs Reviewed: Yes Constitutional Constitutional: no acute distress and cooperative HEENT Exam HEENT Exam: Normal Neck Exam Neck Exam: Normal Breast Exam Bilateral: Breast Exam: Normal and Soft Nipple Exam: Normal and Uninjured Respiratory Exam Respiratory Exam: Normal Cardiovascular Exam Cardiovascular Exam: Normal Abdominal Exam Abdomen: Other (soft, nontender) Fundal Exam Fundus: Below Umbilicus and Firm Rectal Exam Rectal Exam: Not Done Exam Perineum: Intact and Normal Extremities Exam Extremity Exam: Normal, Full ROM and Warm to Touch Back/Spine/Pelvis Exam Back Exam: Normal Skin Exam Skin Exam: Normal Neurological Exam Neurological Exam: Normal Psychiatric Exam Psychiatric Exam: Normal
[2022-05-03] MEDS: Ibuprofen 600 MG TAB PO (16:25)
[2022-05-03] MEDS: Dibucaine 1% 28 GM TUBE TP (16:39)
[2022-05-03] MEDS: Hamamelis Leaf/Glycerin 100 EACH BOX PR (16:39)
[2022-05-04 03:53] VITALS: BP 115/75; PULSE 87; RESP 16; TEMP 36.3
[2022-05-04 07:50] VITALS: BP 139/79; PULSE 81; RESP 14; TEMP 37
--- NOTE | 2022-05-04 14:11 | W.PM.OBDISCH ---
Date of service: 05/04/22 Time of Service: 14:11 DS: Diagnosis Discharge Diagnosis (1) Term delivered: Status: Acute Discharge Plan Disposition Patient Disposition: HOME Condition: Good Discharge Details Reason For Visit: Labor at 39 Wks Admit Date/Time: 05/03/22 09:12 Admit Provider: Milagros Hernandez Attending Provider: Milagros Hernandez Primary Care Provider: Brittney Alcala Hospital Course Hospital Course: normal , normal course, pt requests discharge to home at 24 hours. Home Meds and New Rx's Prescriptions: No Action prenat.vits,jake,[id number]-kmwsp Tablet 1 tab PO DAILY fish,bora,flax oils-om3,6,9no1 [Triple [place] 3-6-9] 400-400-400 mg capsule 1 cap PO DAILY fluticasone propionate [Flonase Allergy Relief] 50 mcg/actuation spray,suspension 1 spray intranasal Q12H PRN (Reason: nasal congestion) Qty: 16 3RF Rx Instructions: administer into each nostril bisacodyl [Dulcolax (bisacodyl)] 10 mg suppository 10 mg AR DAILY PRN (Reason: constipation) Qty: 12 0RF Discharge Instructions Additional Instructions: Please keep your 2 and 6 week appointments with the midwives. If you prefer your 2 week appointment to be via telehealth, please call to let us know. Stand Alone Forms: BC Instructions, BC Post Vaginal Deliver Activity:: Activity as Tolerated Equipment/Supplies:: No Equipment Needed Diet:: Normal Diet Discharge Orders Discharge Orders: Discharge Order (Routine); Ordered 05/04/22 Ordered By: Milagros Hernandez OB:DS Summary Summary Vaginal Delivery Method: Spontaneaous Episiotomy Description: None Laceration Description: Perineal Laceration Extension: First Degree Contraception Discussed Contraception Discussed: Yes Contraceptive Plan: Not planning to use, [place] Gender-Baby A: Male weight: 8 lb 0.926 oz Status at Discharge Functional status at discharge: independent ambulation Overall status at discharge: patient is progressing back to baseline Mental Status: mental status grossly normal Speech and Movement: speech and movement normal and speech clear Mood: congruent mood Affect: normal affect Exam Physical Exam Vital signs: Temp Pulse Resp BP Pulse Ox 98.6 F 81 14 139/79 97 05/04/22 07:50 05/04/22 07:50 05/04/22 07:50 05/04/22 07:50 05/03/22 23:56 Vital Signs Reviewed: Yes Constitutional Constitutional: no acute distress and cooperative HEENT Exam HEENT Exam: Normal Neck Exam Neck Exam: Normal Breast Exam Bilateral: Breast Exam: Normal and Soft Respiratory Exam Respiratory Exam: Normal Cardiovascular Exam Cardiovascular Exam: Normal Abdominal Exam Abdomen: Other (soft, nontender) Fundal Exam Fundus: Below Umbilicus and Firm Rectal Exam Rectal Exam: Not Done Exam Perineum: Intact and Normal Extremities Exam Extremity Exam: Normal, Full ROM and Warm to Touch Back/Spine/Pelvis Exam Back Exam: Normal Skin Exam Skin Exam: Normal Neurological Exam Neurological Exam: Normal Psychiatric Exam Psychiatric Exam: Normal PFSH All Active Problems (Updated 04/24/21 @ 15:32 by Cleopatra Moy MD) Term delivered (Acute) Depression (Chronic) Rubella non-immune status, antepartum (Acute) BMI 39.0-39.9,adult (Acute) (Acute) Hx of dilation and curettage (Acute) 04/06/21. 7w2/7d Medical History (Updated 05/03/22 @ 14:51 by Milagros Hernandez) Incomplete 04/06/21. 7+w EGA. 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 Date GA/Weeks # Preg Succ Route Wgt Sex Labor Lgth Anesthesia Location Prov Complic Unknown vaginal 10/11/14 39 No vaginal 7 lb 6 oz Male regional Sirit Delivery Date: 10/11/14 Last Updated by: TIM Yan PROM, pitocin augmentation. Epidural. DS: Data Vitals/I&O Vitals and I&O: Vital Signs Temperature 98.6 F 05/04/22 07:50 Pulse 81 05/04/22 07:50 Pulse Rhythm Regular 05/04/22 07:50 Respiratory Rate 14 05/04/22 07:50 Respiratory Depth Normal 05/03/22 16:44 Blood Pressure 139/79 05/04/22 07:50 Blood Pressure Mean 99 05/04/22 07:50 Pulse Oximetry 97 05/03/22 23:56 Oxygen Delivery Method Room Air 05/03/22 05:02 Oxygen Flow Rate 0 05/03/22 05:02 Pain Level 0 05/04/22 07:50 Intake & Output 05/03/22 05/04/22 05/04/22 23:59 11:59 23:59 Output Total 1100 / 1250 Balance -1100 / -1250 Output: Urine 1100 / 1100 Other: Urine Color Yellow
[2022-05-04] MEDS: Measles, Mumps, & Rubella Vaccine 0.5 ML VIAL SC (14:41)
== END 2022-05-04 15:50 | disposition home or self-care (01) | DRG 807 ==
PROVIDERS: Admitting Provider Advanced Practice Midwife; PCP Family Medicine; Visit Provider Advanced Practice Midwife
DX: O80 Encounter for full-term uncomplicated delivery (principal); Z37.0 Single live birth; Z3A.39 39 weeks gestation of pregnancy; O99.344 Other mental disorders complicating childbirth; F41.8 Other specified anxiety disorders; O70.0 First degree perineal laceration during delivery; F43.10 Post-traumatic stress disorder, unspecified
CPT/HCPCS: 36415; 85027; 86850; 86900; 86901; 87635; 59025; J2590

== ENCOUNTER 2022-06-18 14:57 | Outpatient (REF) | payer MEDICAID, SELFPAY ==
--- NOTE | 2022-06-18 14:00 | PAPFT_PTH ---
PATIENT: Joseluis Lainez LOC: [facility] U#:[id number] AGE/SX: 31/F ROOM: RE06/18/[address]: Milagros Hernandez CNM : 1990 BED: DIS: 06/18/2022 SPEC #: [id number] RECD: 06/18/22 16:06 STATUS: ISAIAS RECristina #: [id number] AMANDA: 06/18/22 14:[address]: Milagros Hernandez DEPT: [facility] Cytology RECD BY: Pat Cheek ENTERED: 06/18/22 16:07 SP TYPE: PAPFT OTHR DR: Brittney Alcala Tissues: 1 - CX/ENDOCX FOR PAP SMEARS Procedures: PAP THIN PREP/UVM Screening HPV DNA PROBE Comments: [id number]
== END 2022-06-18 14:58 | disposition home or self-care (01) ==
LOC: LBN 14:57
PROVIDERS: PCP Family Medicine; Visit Provider Advanced Practice Midwife
DX: Z12.4 Encounter for screening for malignant neoplasm of cervix (principal); Z11.51 Encounter for screening for human papillomavirus (HPV)
CPT/HCPCS: 88142; 87624

== ENCOUNTER 2022-11-20 00:23 | Outpatient (CLI) | payer MEDICAID, SELFPAY ==
--- NOTE | 2022-11-20 08:00 | DI.US_ITS ---
Exam(s) US OB 1ST TRIMESTER TWINS EXAM: US OB 1ST TRIMESTER TWINS CLINICAL HISTORY: twins,dating us,O30.009. COMPARISON: US POCUS EXAM from 11/12/2022 TECHNIQUE: Transabdominal Transvaginal first trimester obstetrical ultrasound performed. FINDINGS: Sonographic images demonstrate a twin intrauterine gestation. A yolk sac and poles are seen. Sonographically assessed gestational age based upon crown-rump length CRL of Fetus A: 2.15 cm is: 8+ 6 weeks CRL of Fetus B: 2.24 cm is: 9+ 0 weeks Estimated date of delivery based on this ultrasound is: 26 June 2023 Estimated date of delivery based upon LMP: 21 June 2023 heart rate motion is Dopplered at: Fetus A: 178 bpm. Fetus B: 182 bpm. No free fluid identified. The ovaries were not identified. Uterus: 9.6 x 5.7 x 8.9 cm IMPRESSION: Twin live intrauterine gestation as above. DATA REPOSITORY:
== END 2022-11-20 00:43 ==
PROVIDERS: PCP Family Medicine; Visit Provider Obstetrics & Gynecology
DX: O30.001 Twin pregnancy, unspecified number of placenta and unspecified number of amniotic sacs, first trimester (principal)
CPT/HCPCS: 76801; 76802

== ENCOUNTER 2022-12-09 01:58 | Outpatient (CLI) | payer MEDICAID, SELFPAY ==
--- NOTE | 2022-12-09 07:15 | DI.US_ITS ---
Exam(s) US OB 1ST TRIMESTER TWINS EXAM: US OB 1ST TRIMESTER TWINS CLINICAL HISTORY: determine chorionicity of multiple gestation, O30.009. COMPARISON: US US OB 1ST TRIMESTER TWINS from 11/20/2022 TECHNIQUE: Transabdominal Transvaginal first trimester obstetrical ultrasound performed. FINDINGS: There is a twin gestation. There is a thin wispy layer the twins without evidence of a la mbda sign. The findings are most suggestive of a monochorionic diamniotic gestation. Baby A: Estimated gestational age based on crown-rump length is 12 weeks. heart rate is 161 be ats per minute. Estimated date of delivery is 06/23/2023. Baby B: Estimated gestational age based on crown-rump length is 12 weeks. heart rate is 161 be ats per minute. Estimated date of delivery is 06/23/2023. IMPRESSION: 1. There is a twin gestation. The findings are most suggestive of a monochorionic diamniotic gestati on. 2. Estimated gestational age is 12 weeks with a estimated date of delivery of 06/23/2023. DATA REPOSITORY:
== END 2022-12-09 02:18 ==
LOC: DI 01:58
PROVIDERS: PCP Nurse Practitioner Family; Visit Provider Advanced Practice Midwife
DX: O30.001 Twin pregnancy, unspecified number of placenta and unspecified number of amniotic sacs, first trimester (principal)
CPT/HCPCS: 76801; 76802

== ENCOUNTER 2022-12-10 02:17 | Outpatient (CLI) | payer MEDICAID, SELFPAY ==
[2022-12-10 11:41] LABS: Panorama Kit Sent via Fed Ex
[2022-12-10 11:50] LABS: Abs Immature Grans 0.03 10^3/uL (0.0-0.06); Absolute Basophil Count 0.02 10^3/uL (0.0-0.2); Absolute Eosinophil Count 0.05 10^3/uL (0.0-0.7); Absolute Lymphocyte Count 1.97 10^3/uL (1.2-3.4); Absolute Monocyte Count 0.56 10^3/uL (0.1-0.8); Basophils % 0.2; Eosinophils % 0.4; HCT 36.9 % (36.0-46.0); HGB 12.4 g/dL (11.2-15.7); Immature Grans % 0.3; Lymphocytes % 17.2; MCH 28.1 pg (27.0-33.0); MCHC 33.6 % (32.0-36.0); MCV 84 fL (80-95); MPV 10.5 fL (8.0-11.0); Monocytes % 4.9; Platelet Count 325 10^3/uL (130-400); RBC 4.42 10^6/uL (3.93-5.22); RDW 13.8 % (11.7-14.6); RDW-SD 42.7 fL; WBC 11.47 10^3/uL (4.4-10.8)
[2022-12-10 11:57] LABS: Absolute Neutrophil Count 8.83 10^3/uL (1.2-6.7)
[2022-12-11 10:03] LABS: Hepatitis C Ab w Rflx HCV PCR Negative (Negative)
[2022-12-11 10:06] LABS: HIV-1/2 Ag & Ab Screen Negative (Negative)
[2022-12-11 10:49] LABS: Hepatitis B Surface Ag Negative (Negative)
[2022-12-11 11:37] LABS: Rubella IgG Ab (UVM) Positive (See Note); Varicella IgG Antibody Positive (See Note)
[2022-12-11 21:10] LABS: Syphilis IgG w/Reflex Nonreactive (Nonreactive)
== END 2022-12-10 02:18 | disposition home or self-care (01) ==
LOC: LBO 02:17
PROVIDERS: PCP Nurse Practitioner Family; Visit Provider Advanced Practice Midwife
DX: O30.031 Twin pregnancy, monochorionic/diamniotic, first trimester; Z3A.11 11 weeks gestation of pregnancy
CPT/HCPCS: 36415; 86787; 86803; 86850; 86900; 86901; 87340; 87389; 85025; 86762; 86780

== ENCOUNTER 2022-12-10 11:01 | Outpatient (REF) | payer MEDICAID, SELFPAY ==
[2022-12-10 12:15] LABS: *AMPHETAMINES SCREEN URINE Negative (Negative); *BARBITURATES SCREEN URINE Negative (Negative); *BENZODIAZEPINES SCREEN URINE Negative (Negative); Cannabinoids THC Negative (Negative); Cocaine Screen,Urine Negative (Negative); METHADONE URINE SCREEN Negative (Negative); OPIATES URINE SCREEN Negative (Negative)
[2022-12-10 12:19] LABS: Tricyclic Antidepressants Negative (Negative)
[2022-12-17 19:31] LABS: Buprenorphine Negative ng/mL (Cutoff: 5.0); Norbuprenorphine Negative ng/mL (Cutoff: 2.5)
== END 2022-12-10 11:02 | disposition home or self-care (01) ==
LOC: LBN 11:01
PROVIDERS: PCP Nurse Practitioner Family; Visit Provider Advanced Practice Midwife
DX: O30.031 Twin pregnancy, monochorionic/diamniotic, first trimester (principal); Z3A.11 11 weeks gestation of pregnancy
CPT/HCPCS: 80307; 80348; 87086

== ENCOUNTER 2022-12-16 02:45 | Outpatient (CLI) | payer MEDICAID, SELFPAY ==
[2022-12-16 08:46] LABS: Glucose,1 Hr (Glucola) 130 mg/dL (80-140)
== END 2022-12-16 02:46 | disposition home or self-care (01) ==
LOC: LBO 02:45
PROVIDERS: PCP Nurse Practitioner Family; Visit Provider Advanced Practice Midwife
DX: E66.01 Morbid (severe) obesity due to excess calories (principal); O30.039 Twin pregnancy, monochorionic/diamniotic, unspecified trimester; O99.210 Obesity complicating pregnancy, unspecified trimester; Z3A.00 Weeks of gestation of pregnancy not specified
CPT/HCPCS: 36415; 82950

== ENCOUNTER 2022-12-31 16:29 | Outpatient (REF) | payer MEDICAID, SELFPAY ==
[2023-01-02 14:05] LABS: Chlamydia Result Negative (Negative); GC Result Negative (Negative)
== END 2022-12-31 16:30 | disposition home or self-care (01) ==
LOC: LBN 16:29
PROVIDERS: PCP Nurse Practitioner Family; Visit Provider Obstetrics & Gynecology Gynecology
DX: Z3A.14 14 weeks gestation of pregnancy; O30.032 Twin pregnancy, monochorionic/diamniotic, second trimester; O99.212 Obesity complicating pregnancy, second trimester
CPT/HCPCS: 87491; 87591

== ENCOUNTER 2023-01-01 15:32 | Emergency (ER) | payer MEDICAID, SELFPAY ==
[2023-01-01] VITALS (22 sets, daily range): BP systolic 101–108; BP diastolic 58–72; PULSE 75–110; RESP 11–30; TEMP 36.8; O2SAT 99
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
[2023-01-01] MEDS: Ondansetron 4 MG/2 ML VIAL IVP (16:02)
[2023-01-01] MEDS: Lactated Ringers 2,000 ML 1000 ML IV (16:02)
[2023-01-01 16:04] LABS: Abs Immature Grans 0.03 10^3/uL (0.0-0.06); Absolute Basophil Count 0.03 10^3/uL (0.0-0.2); Absolute Lymphocyte Count 0.56 10^3/uL (1.2-3.4); Absolute Monocyte Count 0.37 10^3/uL (0.1-0.8); Basophils % 0.2; HCT 37.8 % (36.0-46.0); HGB 12.8 g/dL (11.2-15.7); Immature Grans % 0.2; Lymphocytes % 4.3; MCH 27.9 pg (27.0-33.0); MCHC 33.9 % (32.0-36.0); MCV 82 fL (80-95); MPV 10.5 fL (8.0-11.0); Monocytes % 2.8; Neutrophils % 92.5; Platelet Count 288 10^3/uL (130-400); RBC 4.59 10^6/uL (3.93-5.22); RDW 13.8 % (11.7-14.6); WBC 13.08 10^3/uL (4.4-10.8)
[2023-01-01 16:15] LABS: Bilirubin Small (Negative); Blood Negative (Negative); Clarity Clear (Clear); Glucose Negative (Negative); Ketones >=160 mg/dL (Negative); Leukocyte Esterase Negative (Negative); Nitrite Negative (Negative); Specific Gravity >= 1.030 (1.005-1.025); Urobilinogen 0.2 mg/dL (Up to 0.2); pH 5.5 (5-8)
[2023-01-01 16:18] LABS: ALT 15 U/L (14-59); AST 11 U/L (15-37); Alkaline Phosphatase 58 U/L (46-116); Anion Gap 12.2 mmol/L (3-11); BUN 7 mg/dL (7-18); Bilirubin, Total 0.4 mg/dL (0.2-1.0); CO2 21.8 mmol/L (21.0-32.0); CREATININE 0.5 mg/dL (0.55-1.02); Calcium 8.4 mg/dL (8.5-10.1); Chloride 102 mmol/L (98-107); Estimated GFR 127.72 (mL/min/1.73m2); Glucose 98 mg/dL (74-106); Magnesium 1.7 mg/dL (1.8-2.4); Potassium 3.2 mmol/L (3.5-5.1); Sodium 136 mmol/L (136-145); Total Protein 6.8 g/dL (6.4-8.2)
[2023-01-01] MEDS: Metoclopramide 10 MG/2 ML VIAL IVP (16:40)
[2023-01-01] MEDS: POTASSIUM CHLORIDE 10 MEQ/100 ML BAG 100 MEQ IVPB ×2 (16:40→17:54)
[2023-01-01 16:49] LABS: Bacteria Few HPF (Negative); C & S Indicated? No/Sq. Contamination; Casts Negative LPF (Negative); Crystals Negative HPF (Negative); Epithelial Cells Moderate HPF (Negative); Mucus Moderate (Negative); RBC 0-2 HPF (0-2); WBC Negative HPF (0-5)
[2023-01-01] MEDS: DEXTROSE 5%-LACTATED RINGERS 1,000 ML 150 ML IV (18:33)
== END 2023-01-01 20:23 | disposition home or self-care (01) ==
PROVIDERS: Emergency Provider Emergency Medicine; PCP Nurse Practitioner Family
DX: O21.8 Other vomiting complicating pregnancy (principal); Z3A.15 15 weeks gestation of pregnancy
CPT/HCPCS: 36415; 80053; 96361; 96374; 99283; 81003; 81015; 83735; 85025; J2405; J2765; J3480

== ENCOUNTER 2023-04-14 16:40 | Outpatient (CLI) | payer MEDICAID, SELFPAY ==
[2023-04-14 17:07] VITALS: BP 118/62; PULSE 89; TEMP 36.5
--- NOTE | 2023-04-14 17:31 | W.PM.OBNL1 ---
Date of service: 04/14/23 Time of Service: 17:31 Pelvic Exam Dilation: 0 Effacement (%): 30 station: -3 Cervix Position: posterior Consistency: soft Contractions Monitor Mode: External Contraction Frequency(min): none Fetus A Monitor: External (US) Heart Rate Baseline: 150 Variability: Moderate (6-25 BPM) Categories: Category I Fetus B Categories: 1 Accelerations: Present Decelerations: None Variability: Moderate (6-25 BPM) Assessment Note: baseline 130 Assessment and Plan Assessment and plan (1) Monochorionic diamniotic twin gestation: Status: Acute Assessment and plan: not in labor, await U/A. PO hydration (2) Obesity, Class III, BMI 40-49.9 (morbid obesity): Status: Acute Subjective Interval history since last seen: Patient seen, reports contractions that have been since noon. no loss of fluid, no bleeding, no trauma. Was sexually active last PM. No signs of pre-eclampsia, babies are active. [place] [facility] [place]
[2023-04-14 17:34] LABS: Bilirubin Negative (Negative); Blood Negative (Negative); Clarity Cloudy (Clear); Glucose Negative (Negative); Ketones Negative (Negative); Leukocyte Esterase Large (Negative); Nitrite Negative (Negative); Urobilinogen 0.2 mg/dL (Up to 0.2); pH 5.5 (5-8)
[2023-04-14 17:35] VITALS: BP 118/62; PULSE 89
[2023-04-14 17:51] LABS: Bacteria Many HPF (Negative); C & S Indicated? No/Sq. Contamination; Crystals Negative HPF (Negative); Epithelial Cells Many HPF (Negative); Mucus Negative (Negative); RBC 0-2 HPF (0-2); WBC 20-50 HPF (0-5)
[2023-04-14] MEDS: MacroBID 100 MG CAP PO (18:25)
== END 2023-04-14 18:25 | disposition home or self-care (01) ==
LOC: BCD 16:45 → OBS 16:49
PROVIDERS: PCP Nurse Practitioner Family; Visit Provider Obstetrics & Gynecology
DX: O30.033 Twin pregnancy, monochorionic/diamniotic, third trimester (principal); E66.01 Morbid (severe) obesity due to excess calories; Z3A.29 29 weeks gestation of pregnancy
CPT/HCPCS: 59025; 81003; 81015

== ENCOUNTER 2023-05-14 08:37 | Outpatient (CLI) | payer MEDICAID, SELFPAY ==
[2023-05-14 10:02] VITALS: BP 126/81; PULSE 99; TEMP 36.4
--- NOTE | 2023-05-16 08:34 | W.OBNST ---
Date of service: 05/14/23 Time of Service: 08:35 NST Evaluation Reason for NST Reasons for Nonstress Test: MULTIPLE GESTATION Gestational Age Gestational Age in Weeks and Days: 33 Weeks and 6Days Test and Monitor Explained Test/Monitor Explained: Test Explained, Monitor Explained and Patient Verbalized Understanding Vital Signs Blood Pressure: 126/81 Pulse: 99 Temperature: 97.5 F Urine Results Urine Protein: Negative Urine Ketones: Negative Urine Glucose: Negative Urine Blood: Negative NST Information Date on Monitor: 05/14/23 Time on Monitor: 08:59 Date off Monitor: 05/14/23 Time off Monitor: 09:55 Total Time on Monitor: 56 NST Interventions: PO Hydration and Notify Provider Contraction Frequency: Occasional reported by pt NST Evaluation Patient States Movement: Present FHR Baseline: 135 Variability: Moderate 6-25 bpm Accelerations: 15x15 Decelerations: None NST Results: Reactive NST Evaluation Baby B Patient States Movement: Present FHR Baseline: 150 Variability: Moderate 6-25 bpm Accelerations: 15x15 Decelerations: None NST Results: Reactive Note Ultrasound Done: N/A. NST Note Note: Category 1, reactive NST, Twin A and B. Follow up as scheduled NST Reviewed and Verified by: Prema Herman
[2023-05-16 08:36] VITALS: BP 126/81; PULSE 99; TEMP 36.4
== END 2023-05-14 10:11 ==
LOC: BCD 08:39 → OBS 09:58
PROVIDERS: PCP Nurse Practitioner Family; Visit Provider Obstetrics & Gynecology
DX: O30.033 Twin pregnancy, monochorionic/diamniotic, third trimester (principal); O99.213 Obesity complicating pregnancy, third trimester; Z3A.33 33 weeks gestation of pregnancy
CPT/HCPCS: 59025

== ENCOUNTER 2023-05-20 07:26 | Outpatient (CLI) | payer MEDICAID, SELFPAY ==
[2023-05-20 09:00] VITALS: BP 119/72; PULSE 87
[2023-05-20 09:20] VITALS: BP 119/72; PULSE 87; TEMP 36.6
[2023-05-20 16:24] VITALS: BP 119/72; PULSE 87; TEMP 36.6
--- NOTE | 2023-05-20 16:24 | W.OBNST ---
Date of service: 05/20/23 Time of Service: 16:24 NST Evaluation Reason for NST Reasons for Nonstress Test: MULTIPLE GESTATION Gestational Age Gestational Age in Weeks and Days: 34 Weeks and 5Days Test and Monitor Explained Test/Monitor Explained: Test Explained, Monitor Explained and Patient Verbalized Understanding Vital Signs Blood Pressure: 119/72 Pulse: 87 Temperature: 97.9 F NST Information Date on Monitor: 05/20/23 Time on Monitor: 08:56 Date off Monitor: 05/20/23 Time off Monitor: 09:35 Total Time on Monitor: 39 NST Interventions: Notify Provider Contraction Frequency: 0 NST Evaluation Patient States Movement: Present FHR Baseline: 130 Variability: Moderate 6-25 bpm Accelerations: 15x15 Decelerations: None NST Results: Reactive NST Evaluation Baby B Patient States Movement: Present FHR Baseline: 135 Variability: Moderate 6-25 bpm Accelerations: 15x15 Decelerations: None NST Results: Reactive Note Ultrasound Done: N/A. NST Note Note: Pt here for NST due to twin gestation. She is returning next week. NST Reviewed and Verified by: Leslye Morrow
== END 2023-05-20 09:37 ==
LOC: BCD 07:27 → OBS 08:54
PROVIDERS: PCP Nurse Practitioner Family; Visit Provider Obstetrics & Gynecology
DX: O30.033 Twin pregnancy, monochorionic/diamniotic, third trimester (principal); Z3A.34 34 weeks gestation of pregnancy
CPT/HCPCS: 59025

== ENCOUNTER 2023-05-25 17:02 | Outpatient (CLI) | payer MEDICAID, SELFPAY ==
[2023-05-25 18:12] VITALS: BP 109/61; PULSE 123; TEMP 210.7; TEMP 99.3
[2023-05-25 18:15] VITALS: BP 109/61; PULSE 123
[2023-05-25] MEDS: Acetaminophen 500 MG TAB 1000 MG PO (18:24)
--- NOTE | 2023-05-25 18:42 | W.OBNST ---
Date of service: 05/25/23 Time of Service: 18:42 NST Evaluation Reason for NST Reasons for Nonstress Test: OTHER, SEE COMMENT Reason for NST Other: Suspected ROM Gestational Age Gestational Age in Weeks and Days: 35 Weeks and 3Days Test and Monitor Explained Test/Monitor Explained: Test Explained Vital Signs Blood Pressure: 109/61 Pulse: 123 Temperature: 210.7 F NST Information Date on Monitor: 05/25/23 Time on Monitor: 17:48 Date off Monitor: 05/25/23 Time off Monitor: 18:27 Total Time on Monitor: 39 NST Evaluation Patient States Movement: Present FHR Baseline: 140 Variability: Moderate 6-25 bpm Accelerations: 15x15 Decelerations: None NST Results: Reactive NST Evaluation Baby B Patient States Movement: Present Variability: Moderate 6-25 bpm Accelerations: 15x15 Decelerations: None NST Results: Reactive Note Ultrasound Done: N/A. NST Note Note: Category 1, reactive nonstress test for twin a and B. Maternal tachycardia with maternal low-grade temperature. Mom positive for COVID. Awaiting ROM plus. No significant contractions appreciated. NST Reviewed and Verified by: Prema Herman
[2023-05-25 18:43] VITALS: BP 109/61; PULSE 123; TEMP 210.7; TEMP 99.3
[2023-05-25 18:48] LABS: ROM Plus Negative
--- NOTE | 2023-05-25 19:30 | NUR.NOTE ---
Nursing Note:Discharge instructions reviewed with pt. Pt denied questions and signed instructions, copy given to pt. Pt discharged to home ambulatory.
== END 2023-05-25 19:34 | disposition home or self-care (01) ==
LOC: BCD 17:09 → OBS 17:33
PROVIDERS: PCP Nurse Practitioner Family; Visit Provider Obstetrics & Gynecology
DX: O30.033 Twin pregnancy, monochorionic/diamniotic, third trimester (principal); O47.03 False labor before 37 completed weeks of gestation, third trimester; R00.0 Tachycardia, unspecified; U07.1 COVID-19; Z3A.35 35 weeks gestation of pregnancy
CPT/HCPCS: 59025; 84112

== ENCOUNTER 2023-05-27 07:18 | Outpatient (CLI) | payer MEDICAID, SELFPAY ==
[2023-05-27 09:46] VITALS: BP 108/71; PULSE 92; TEMP 36.9
[2023-05-27 10:00] VITALS: BP 108/71; PULSE 92
--- NOTE | 2023-05-27 10:27 | PDOC.NST_ITS ---
Date of service: 05/27/23 Time of Service: 10:28 NST Evaluation Reason for NST Reasons for Nonstress Test: MULTIPLE GESTATION Gestational Age Gestational Age in Weeks and Days: 35 Weeks and 5Days Test and Monitor Explained Test/Monitor Explained: Test Explained, Monitor Explained and Patient Verbalized Understanding Vital Signs Blood Pressure: 108/71 Pulse: 92 Temperature: 98.4 F NST Information Date on Monitor: 05/27/23 Time on Monitor: 08:40 NST Interventions: PO Hydration NST Evaluation Patient States Movement: Present FHR Baseline: 135 Variability: Moderate 6-25 bpm Accelerations: 15x15 Decelerations: None NST Results: Reactive NST Evaluation Baby B Patient States Movement: Present FHR Baseline: 130 Variability: Moderate 6-25 bpm Accelerations: 15x15 Decelerations: None NST Results: Reactive Note Ultrasound Done: N/A. NST Note Note: Pt reports improved cough sx. Taking Plaxlovid day #3. She had GBS RV Cx obtained at [facility] [place]. Results unknown. Pt reports good motion. No contractions appreciated. Pt is scheduled for IOL on 06/05/23 if no spontaneous labor. NST Reviewed and Verified by: Cleopatra Moy
[2023-05-27 10:34] VITALS: BP 108/71; PULSE 92; TEMP 36.9
== END 2023-05-27 10:28 ==
LOC: BCD 07:18 → OBS 09:36
PROVIDERS: PCP Nurse Practitioner Family; Visit Provider Obstetrics & Gynecology Gynecology
DX: O30.033 Twin pregnancy, monochorionic/diamniotic, third trimester (principal); Z3A.35 35 weeks gestation of pregnancy
CPT/HCPCS: 59025

== ENCOUNTER 2023-06-03 04:10 | Outpatient (CLI) | payer MEDICAID, SELFPAY ==
[2023-06-03 09:01] VITALS: BP 124/75; PULSE 89; TEMP 37.1
[2023-06-03 09:31] VITALS: BP 124/75; PULSE 89
== END 2023-06-03 09:50 | disposition home or self-care (01) ==
LOC: BCD 04:10 → OBS 09:00
PROVIDERS: PCP Nurse Practitioner Family; Visit Provider Obstetrics & Gynecology Gynecology
DX: O30.033 Twin pregnancy, monochorionic/diamniotic, third trimester (principal); Z3A.37 37 weeks gestation of pregnancy
CPT/HCPCS: 59025

== ENCOUNTER 2025-04-25 03:20 | Outpatient (CLI) | payer MEDICAID, SELFPAY ==
[2025-04-25 08:57] LABS: Hemoglobin A1C 5.6 % (<5.7)
[2025-04-25 10:46] LABS: ALT 25 U/L (14-59); AST 10 U/L (15-37); Albumin 3.9 g/dL (3.4-5.0); Alkaline Phosphatase 61 U/L (46-116); Anion Gap 8.9 mmol/L (3-11); BUN 12 mg/dL (7-18); Bilirubin, Total 0.4 mg/dL (0.2-1.0); CO2 29.1 mmol/L (21.0-32.0); Calcium 9.3 mg/dL (8.5-10.1); Chloride 102 mmol/L (98-107); Cholesterol 173 mg/dL (<200); Glucose 86 mg/dL (74-106); HDL Cholesterol 39 mg/dL (>or=50); Potassium 4.8 mmol/L (3.5-5.1); Sodium 140 mmol/L (136-145); TSH (W/Ref FT4) 1.30 uIU/mL (0.36-3.74); Total Protein 7.3 g/dL (6.4-8.2)
== END 2025-04-25 03:21 | disposition home or self-care (01) ==
LOC: LBO 03:20
PROVIDERS: PCP Nurse Practitioner Family; Visit Provider Nurse Practitioner Family
DX: Z00.00 Encounter for general adult medical examination without abnormal findings (principal); F41.9 Anxiety disorder, unspecified; F32.A Depression, unspecified; E66.01 Morbid (severe) obesity due to excess calories; J31.0 Chronic rhinitis
CPT/HCPCS: 36415; 80053; 80061; 83036; 84443